=== PATIENT | female | born 1995 | race Caucasian/White ===

== ENCOUNTER 2018-06-08 10:49 | Emergency (ER) | payer OTHER ==
[~2018-06-08] VITALS: Ht 165.1 cm; Wt 57.2 kg
[2018-06-08 11:07] VITALS: BP 109/50
--- NOTE | 2018-06-08 11:10 | NUR ---
PATIENT PRESENTS TO ED WITH c/o throat pain , productive cough green phlegm---x 10 days hx---denies rx---none; DENIES N/V/D; SKIN IS PINK/WARM/DRY; AAOX4 WITH EVEN AND STEADY GAIT; LUNGS CLEAR BL; HR EVEN AND REGULAR; PT DENIES ANY FEVER, OR SOB AT THIS TIME; PATIENT STATES PAIN OF 7/10 AT THIS TIME; VSS; PATIENT POSITIONED FOR COMFORT; HOB ELEVATED; BEDRAILS UP X2; BED DOWN. ER MD MADE AWARE OF PT STATUS.
--- NOTE | 2018-06-08 13:36 | NUR ---
PT AWAITING TO BE SEEN BY
[2018-06-08 16:25] VITALS: BP 129/57
== END 2018-06-08 16:26 | disposition home or self-care (01) ==
LOC: MED 10:49
DX: J40 Bronchitis, not specified as acute or chronic (principal)
CPT/HCPCS: 99283

== ENCOUNTER 2022-02-02 14:30 | Emergency (ER) | payer OTHER ==
[~2022-02-02] VITALS: Ht 165.1 cm; Wt 63.5 kg
[2022-02-02 14:34] VITALS: BP 126/78
--- NOTE | 2022-02-02 14:58 | NUR ---
26 Y/O FEMALE PATIENT BIB SELF PRESENTS TO ED WITH LOWER ABD PAIN, INFLAMATION X 3 DAYS. PT STATES BURNING SENSATION WHEN URINATING, AND NAUSEA. PT REPORTS NEED FOR RESTROOM Q 30 MIN. PT DENIES ANY BLOOD IN URINE. DENIES V/D; SKIN IS PINK/WARM/DRY; AAOX4 WITH EVEN AND STEADY GAIT; PT DENIES ANY FEVER, CP, SOB, OR COUGH AT THIS TIME; PATIENT STATES PAIN OF 7/10 AT THIS TIME; VSS; PATIENT POSITIONED FOR COMFORT; HOB ELEVATED; BEDRAILS UP X1; BED DOWN. PMEDHX: DENIES NKDA
--- NOTE | 2022-02-02 15:04 | NUR ---
DR. SNELL AT THE BEDSIDE EVALATING PT.
[2022-02-02] MEDS ORDERED: CEPH-588 PO (15:07)
[2022-02-02] MEDS ORDERED: ACET-10509 PO (15:07)
[2022-02-02 15:14] VITALS: BP 126/78
--- NOTE | 2022-02-02 15:15 | NUR ---
Patient discharged with v/s stable. Written and verbal after care instructions given and explained about uti. Patient alert, oriented and verbalized understanding of instructions. Ambulatory with steady gait. All questions addressed prior to discharge. ID band removed. Patient advised to follow up with PMD. Rx of tylenol,and kefflex given. Patient educated on indication of medication including possible reaction and side effects. Opportunity to ask questions provided and answered.
== END 2022-02-02 15:14 | disposition home or self-care (01) ==
LOC: MED 14:30
DX: R30.0 Dysuria (principal); N39.0 Urinary tract infection, site not specified; Z79.899 Other long term (current) drug therapy
CPT/HCPCS: 81002; 81025; 99283

== ENCOUNTER 2022-02-23 11:59 | Emergency (ER) | payer OTHER ==
[~2022-02-23] VITALS: Ht 165.1 cm; Wt 62.6 kg
[~2022-02-23 11:59] MED LIST: ACET-10509 PO; CEPH-588 PO
[2022-02-23 12:14] VITALS: BP 115/72
--- NOTE | 2022-02-23 12:35 | NUR ---
AYESHA Newman is evaluating patient at bedside
[2022-02-23] MEDS ORDERED: KETOROLAC 30 MG/ML VIAL IM ONE (12:45)
--- NOTE | 2022-02-23 12:45 | NUR ---
26yo f c/o dysuria and hypogastric pain since this am. pt also reports feeling of incomplete emptying of bladder. denies hematuria. denies fever. pt was treated for UTI 2 weeks ago- completed antibiotic therapy. pt states 7/10 pain, pressure/intermittent, non-radiating that worsens with urination. Denies fever, chills, n/v, vaginal discomfort. Bed locked in lowest position, side rails x 1. lmp: 02/13/22 pmh: none meds: is[place] dao
--- NOTE | 2022-02-23 13:00 | NUR ---
Urine sample collected, walked to lab and handed to CPT. Nubia
--- NOTE | 2022-02-23 13:15 | NUR ---
Patient states + relief 05/11 at this time. All pt needs met.
[2022-02-23 14:03] LABS: APPEARANCE,URINE SL CLOUDY (CLEAR); BILIRUBIN,URINE NEGATIVE (NEGATIVE); BLOOD, URINE 2+ (NEGATIVE); COLOR,URINE YELLOW (YELLOW); LEUKOCYTE ESTERASE ,URINE 3+ (NEGATIVE); NITRITE, URINE NEGATIVE (NEGATIVE); PH,URINE 6.5 (5.0-9.0); UGLUCOSE NEGATIVE (NEGATIVE)
[2022-02-23 14:12] LABS: CALCIUM OXALATE CRYSTALS,UR None Seen /HPF (None Seen); COARSE GRANULAR CASTS,URINE None Seen /LPF (None Seen); FINE GRANULAR CASTS,URINE None Seen /LPF (None Seen); HYALINE CASTS, URINE None Seen /LPF (None Seen); OTHER CASTS, URINE None Seen /LPF (None Seen); OTHER CRYSTALS,URINE None Seen /HPF (None Seen); RED BLOOD CELL CASTS,URINE None Seen /LPF (None Seen); TRICHOMONAS,URINE None Seen /HPF (None Seen); TRIPLE PHOSPHATE CRYSTAL,UR None Seen /HPF (None Seen); URIC ACID CRYSTALS,URINE None Seen /HPF (None Seen); URINE AMORPHOUS URATE 1+ /HPF (None Seen); WAXY CASTS,URINE None Seen /LPF (None Seen); WBC,URINE 16-25 (MOD) /HPF (0-5); YEAST,URINE None Seen /HPF (None Seen)
[2022-02-23 14:18] VITALS: BP 105/58
--- NOTE | 2022-02-23 14:18 | NUR ---
AYESHA Newman is reevaluating pt at bedside
[2022-02-23] MEDS ORDERED: NITR100C7 PO (14:19)
[2022-02-23] MEDS ORDERED: PHEN-1877 PO (14:19)
--- NOTE | 2022-02-23 14:32 | NUR ---
Patient discharged with v/s stable. Written and verbal after care instructions given and explained for UTI. Patient alert, oriented and verbalized understanding of instructions. Ambulatory with steady gait. All questions addressed prior to discharge. ID band removed. Patient advised to follow up with PMD. Rx of Macrobid, Pyridium given. Patient educated on indication of medication including possible reaction and side effects. Opportunity to ask questions provided and answered.
--- NOTE | 2022-02-25 19:02 | NUR ---
LATE ENTRY. +URINE CULTURE RESULT RECEIVED FROM LAB. SIGNED BY DR MUNOZ. COPY OF DISCREPANCY BACK LOG IN FOLDER. COPY SENT TO INFECTION CONTROL. Addendum: 02/25/[address] at [email or web address] MCCALL
== END 2022-02-23 14:32 | disposition home or self-care (01) ==
LOC: MED 11:59
DX: N39.0 Urinary tract infection, site not specified (principal); Z79.899 Other long term (current) drug therapy
CPT/HCPCS: 81001; 81025; 87086; 96372; 99283; J1885